=== PATIENT | female | born 1990 | race Caucasian/White ===

== ENCOUNTER 2017-06-23 06:20 | Emergency (ER) | payer MEDICAID ==
--- NOTE | 2017-06-23 07:10 | ED Physician Chart ---
ED Chief Complaint/HPI - Patient Information Date Seen:: 06/23/17 Time Seen:: 07:10 Chief Complaint:: Right foot pain History of Present Illness:: 26 yo female injured her right foot when she was climbing up stairs. She had severe pain (7/10) on the dorsal part of the right foot, worsened by standing and walking to 10/10. There was minimal swelling. Allergies:: Allergies Allergy/AdvReac Type Severity Reaction Status Date / Time naproxen [From Aleve] Allergy Verified 06/23/17 06:37 Vitals:: Vital Signs - 8 hr 06/23/17 06:30 Temp 98.2 F HR 90 RR 18 BP 138/79 O2 Sat % 98 ED Review of Systems - Review of Systems General/Constitutional: No fever Skin: No skin lesions Head: No headache Eyes: No pain ENT: No nasal drainage Neck: No neck pain Cardio Vascular: No chest pain Pulmonary: No SOB GI: No nausea, No vomiting Musculoskeletal: Other (right foot pain) ED Past Medical History - Past Medical History Past Medical History: No significant medical hx, Other () Social History: Non Smoker, No Alcohol, No Drug Use Surgical History: (x 1) Family Medical History - Family Member Mother History Unknown: Yes ED Physical Exam - Physical Examination General/Constitutional: Awake Head: Atraumatic Eyes: PERRL Skin: No skin lesions ENMT: Nasal exam nl Neck: No nuchal rigidity Respiratory: No Wheeze/Rhonchi/Rales Cardio Vascular: RRR, No murmur, gallop, rubs, NL S1 S2 GI: No tenderness/rebounding/guarding Other Extremities comments:: Right dorsal foot minor skin abrasions, painful ROM, worsened by weight bearing Neuro/Psych: No focal deficits ED Labs/Radiology/EKG Results - Radiology Results Results: Right foot X ray: no fracture ED Assessment - Assessment General Assessment: Right dorsal foot sprain Assessment/Comments:: Right foot X ray Ibuprofen 800mg bid D/c home Rest, icing, and elevation ED Septic Shock - . Is Septic Shock (SBP<90, OR Lactate>4 mmol\L) present?: No - <6hrs of presentation: Vital Signs: Vital Signs - 8 hr 06/23/17 06:30 Temp 98.2 F HR 90 RR 18 BP 138/79 O2 Sat % 98 ED Reassessment (Disposition) - Reassessment Reassessment Condition:: Improved - Patient Disposition Discharge/Transfer:: Home
--- NOTE | 2017-06-23 08:20 | Diagnostic Imaging Report ---
Exam: Right foot. HISTORY: Pain Findings: Multiple views of right foot reviewed. The study demonstrates no evidence of fracture dislocation. There is no evidence of soft tissue swelling. Valgus deformity of the right great toe appreciated. IMPRESSION normal examination right foot.
== END 2017-06-23 07:35 | disposition home or self-care (01) ==
LOC: ER 06:20
DX: S93.601A Unspecified sprain of right foot, initial encounter (principal); X58.XXXA Exposure to other specified factors, initial encounter; Y93.89 Activity, other specified; Y92.89 Other specified places as the place of occurrence of the external cause; Y99.8 Other external cause status
CPT/HCPCS: 73630-TC-RT; Z7502